=== PATIENT | female | born 1990 | race Caucasian/White ===

== ENCOUNTER 2017-01-06 18:10 | Emergency (ER) | payer MEDICAID ==
[~2017-01-06] VITALS: Ht 165.1 cm; Wt 104.3 kg
[2017-01-06 18:10] VITALS: BP 109/60; PULSE 80; RESP 19; TEMP 97.7; O2SAT 96
--- NOTE | 2017-01-06 18:15 | NUR ---
Patient triaged and placed in waiting room. VSS and patient appears in no acute distress at this time. Accompanied by SPOUSE, awaiting available bed, and MD notified of need for MSE.
--- NOTE | 2017-01-06 18:51 | NUR ---
Patient to ER bed 4 to gown for evaluation. Side rails up.
--- NOTE | 2017-01-06 19:14 | NUR ---
PT WAS IN ROOM #4 AND ROOM WAS NEEDED FOR MORE CRITICAL PATIENT, PT WAS MOVED TO [facility] AND STATES THAT IF SHE CAN'T HAVE ROOM 4, IM LEAVING, PER KECIA CHARGE NURSE
--- NOTE | 2017-01-06 19:15 | NUR ---
Patient left without being seen.
== END 2017-01-06 19:15 | disposition left against medical advice (07) ==
LOC: SED 18:10
DX: H92.09 Otalgia, unspecified ear (principal); Z53.21 Procedure and treatment not carried out due to patient leaving prior to being seen by health care provider

== ENCOUNTER 2017-10-21 09:08 | Emergency (ER) | payer MEDICAID ==
[~2017-10-21] VITALS: Ht 165.1 cm; Wt 104.3 kg
[2017-10-21 09:35] VITALS: BP_SYST 140
[2017-10-21 13:44] VITALS: BP_SYST 122
== END 2017-10-21 13:44 | disposition home or self-care (01) ==
LOC: SED 09:08
DX: J45.901 Unspecified asthma with (acute) exacerbation (principal)
CPT/HCPCS: 81025; 99283

== ENCOUNTER 2019-02-13 13:13 | Emergency (ER) | payer MEDICAID ==
[~2019-02-13] VITALS: Ht 165.1 cm; Wt 115.7 kg
[2019-02-13 13:15] VITALS: BP_SYST 128
[2019-02-13 14:51] VITALS: BP_SYST 121
== END 2019-02-13 14:52 | disposition home or self-care (01) ==
LOC: SED 13:13
DX: G89.18 Other acute postprocedural pain (principal); R10.2 Pelvic and perineal pain; J45.909 Unspecified asthma, uncomplicated; R03.0 Elevated blood-pressure reading, without diagnosis of hypertension
CPT/HCPCS: 99283

== ENCOUNTER 2020-07-02 10:58 | Emergency (ER) | payer MEDICAID ==
[~2020-07-02] VITALS: Ht 165.1 cm; Wt 113.4 kg
[2020-07-02 11:00] VITALS: BP_SYST 102
--- NOTE | 2020-07-02 11:00 | NUR ---
BROUGHT BACK TO BED #1 AND TRIAGED. REPORT GIVEN TO ANGELITA
--- NOTE | 2020-07-02 11:01 | NUR ---
ER at bedside examining patient.
--- NOTE | 2020-07-02 11:03 | NUR ---
Patient arrived in the ED c/o shortness of breath and left leg pain that started last night. Patient had a history of Pulmonary Embolism. Denied any fevers, chills, nausea or vomiting. Patient is alert and oriented x4, respirations even and unlabored, speaking in full sentences, and ambulating with a steady gait. VSS, pain level 6/10. Informed of the approximate wait time. Instructed to notify ED staff for any changes in condition or worsening of symptoms while waiting to be seen by an ED provider. Patient verbalized understanding.
--- NOTE | 2020-07-02 11:11 | NUR ---
ECG done at bedside as ordered by Dr. Garay. Patient tolerated the procedure well. ER Physician given copy of EKG for review.
--- NOTE | 2020-07-02 11:20 | NUR ---
# 18 gauge angiocath placed to LAC. Use of asceptic technique. Opsite placed over site. Blood return noted. Blood for lab drawn from site. Flushed with 10 cc of normal saline. No evidence of infiltration noted. Patient tolerated well.
--- NOTE | 2020-07-02 11:33 | NUR ---
Patient ambulated to the bathroom with a steady gait. Urine specimen collected and dipped as ordered by Dr. Garay. Patient tolerated the activity well.
[2020-07-02 11:40] LABS: BASOPHILS % (AUTO) 0.3 % (0.0-2.0); EOSINOPHILS # (AUTO) 0.1 K/uL (0.0-0.4); EOSINOPHILS % (AUTO) 0.9 % (0.0-4.0); HEMATOCRIT 36.6 % (36-48); HEMOGLOBIN 12.2 g/dL (12.0-16.0); LYMPHOCYTES # (AUTO) 2.9 K/uL (1.0-5.5); LYMPHOCYTES % (AUTO) 35.7 % (20.5-51.5); MEAN CORPUSCULAR HEMOGLOBIN 28 pg (27-31); MEAN CORPUSCULAR HGB CONC 33 % (32-36); MEAN CORPUSCULAR VOLUME 85 fL (79.0-98.0); MONOCYTES # (AUTO) 0.4 K/uL (0.0-1.0); MONOCYTES % (AUTO) 4.9 % (1.7-9.3); NEUTROPHILS # (AUTO) 4.7 K/uL (1.8-7.7); NEUTROPHILS % (AUTO) 58.2 % (40.0-70.0); PLATELET COUNT (AUTO) 359 K/uL (130-430); RED BLOOD CELL COUNT(AUTO) 4.33 MIL/uL (4.2-6.2); RED CELL DISTRIBUTION WIDTH 14.3 % (9.0-15.0); WHITE BLOOD COUNT (AUTO) 8.2 K/uL (4.8-10.8)
[2020-07-02 11:48] LABS: CALCIUM 8.8 mg/dL (8.4-11.0); CREATININE 0.77 mg/dL (0.55-1.30); POTASSIUM 3.9 mmol/L (3.5-5.1)
[2020-07-02 11:55] LABS: ALBUMIN 3.2 g/dL (3.4-4.8); TOTAL BILIRUBIN 0.3 mg/dL (0.0-1.0)
[2020-07-02] MEDS ORDERED: KETOROLAC TROMETHAMINE 30 MG VIAL IVP ONE (12:15)
--- NOTE | 2020-07-02 12:40 | NUR ---
Patient given written and verbal discharge instructions and verbalizes understanding. ER MD discussed with patient the results and treatment provided. Patient in stable condition. ID arm band removed. IV catheter removed intact and dressing applied, no active bleeding. Rx of Ibuprofen and Cipro given. Patient educated on pain management and to follow up with PMD. Pain Scale 0/10. Opportunity for questions provided and answered. Medication side effect fact sheet provided.
[2020-07-02 12:42] VITALS: BP_SYST 102
== END 2020-07-02 12:40 | disposition home or self-care (01) ==
LOC: SED 10:58
DX: R07.89 Other chest pain (principal); N39.0 Urinary tract infection, site not specified; J45.909 Unspecified asthma, uncomplicated
CPT/HCPCS: 36415; 80053; 81002; 81025; 84484; 85025; 85379; 96374; 99284; J1885; 93005

== ENCOUNTER 2020-08-18 18:45 | Emergency (ER) | payer MEDICAID ==
[~2020-08-18] VITALS: Ht 165.1 cm; Wt 117.9 kg
[2020-08-18 18:51] VITALS: BP_SYST 138
[2020-08-18] MEDS ORDERED: IPRATROPIUM/ALBUTEROL SULFATE 3 ML AMPUL.NEB (DUONEB) INH ONE (19:15)
[2020-08-18 20:26] VITALS: BP_SYST 113
== END 2020-08-18 20:26 | disposition home or self-care (01) ==
LOC: SED 18:45
DX: J40 Bronchitis, not specified as acute or chronic (principal); Z20.828 Contact with and (suspected) exposure to other viral communicable diseases
CPT/HCPCS: 36415; 71045; 94640; 99284

== ENCOUNTER 2020-10-28 10:49 | Emergency (ER) | payer MEDICAID, SELFPAY ==
[~2020-10-28] VITALS: Ht 167.6 cm; Wt 117.0 kg
[2020-10-28 10:55] VITALS: BP_SYST 138
--- NOTE | 2020-10-28 11:00 | NUR ---
Pt triaged and placed in tent.
--- NOTE | 2020-10-28 11:05 | NUR ---
Pt walked in to ER with c/o left ankle pain, pt reports h/o strain. Reports pain 3/10. V/S stable, pt is afebrile. No distress noted.
--- NOTE | 2020-10-28 11:10 | NUR ---
Patient transported to radiology via wheelchair, accompanied by staff.
--- NOTE | 2020-10-28 11:11 | NUR ---
DR. SO EXAMING PT
--- NOTE | 2020-10-28 12:05 | NUR ---
Patient given written and verbal discharge instructions and verbalizes understanding. ER MD discussed with patient the results and treatment provided. Patient in stable condition. ID arm band removed. No prescriptions given. Patient educated on pain management and to follow up with PMD. Pain Scale 3. Opportunity for questions provided and answered. Medication side effect fact sheet provided.
== END 2020-10-28 12:05 | disposition home or self-care (01) ==
LOC: SED 10:49
DX: S93.492A Sprain of other ligament of left ankle, initial encounter (principal); J45.909 Unspecified asthma, uncomplicated; X50.0XXA Overexertion from strenuous movement or load, initial encounter; Y93.89 Activity, other specified; Y92.89 Other specified places as the place of occurrence of the external cause; Y99.8 Other external cause status
CPT/HCPCS: 99284

== ENCOUNTER 2024-05-27 22:27 | Emergency (ER) | payer MEDICAID ==
[~2024-05-27] VITALS: Ht 165.1 cm; Wt 115.7 kg
[2024-05-27 22:38] VITALS: BP_SYST 117; PULSE 93; RESP 18; TEMP 98.4; O2SAT 96
[2024-05-27 23:20] VITALS: BP_SYST 117; PULSE 93; RESP 18; TEMP 98.4; O2SAT 96
== END 2024-05-27 23:20 | disposition home or self-care (01) ==
LOC: SED 22:27
DX: O9A.212 Injury, poisoning and certain other consequences of external causes complicating pregnancy, second trimester (principal); S93.492A Sprain of other ligament of left ankle, initial encounter; Z3A.22 22 weeks gestation of pregnancy; J45.909 Unspecified asthma, uncomplicated; W18.39XA Other fall on same level, initial encounter; Y93.89 Activity, other specified; Y92.89 Other specified places as the place of occurrence of the external cause; Y99.8 Other external cause status
CPT/HCPCS: 99283